=== PATIENT | male | born 1970 | race Caucasian/White ===

== ENCOUNTER 2017-04-02 23:07 | Emergency (ER) | payer OTHER ==
[~2017-04-02] VITALS: Ht 167.6 cm; Wt 80.6 kg
[2017-04-02 23:11] VITALS: BP 146/100; PULSE 91; RESP 20; TEMP 98.2; O2SAT 93
[2017-04-02] MEDS ORDERED: RESP: ALBUTEROL 2.5 MG/IPRATROPIUM 0.5 MG NEB (SCH) NEB ONE (23:30)
[2017-04-02] MEDS ORDERED: methylPREDNISolone SOD SUCC 125 MG/2 ML VIAL IV PUSH ONE (23:30)
--- NOTE | 2017-04-02 23:36 | PD ---
HPI Chief Complaint: Respiratory Symptoms Time Seen by Provider: 23:16 Travel History International Travel<30 days: No Contact w/Intl Traveler<30days: No Traveled to known affect area: No History of Present Illness HPI This 46-year-old male is complaining of cough and shortness of breath. He has a history of asthma. He was admitted quite often when he was a child. Recently it seems like his asthma has been getting worse. He had a chest x-ray couple weeks ago which was negative he is on albuterol at home. He has been on steroids in the past but is not on them right now. He has not had any fever or chills. He has been coughing and has been short of breath tonight [facility] Past Medical History Respiratory: Yes (Ashtma) Social History Alcohol Use: Yes (SOCIAL) Tobacco Use: No Substance Use: No Allergies-Medications (Allergen,Severity, Reaction): Coded Allergies: No Known Allergies (Verified , 04/02/17) Reported Meds & Prescriptions Reported Meds & Active Scripts Active Prednisone 20 Mg Tab 60 Mg PO DAILY 5 Days Review of Systems General / Constitutional: No: Fever, Chills Eyes: No: Diploplia, Blurred Vision HENT: No: Headaches, Vertigo Cardiovascular: No: Chest Pain or Discomfort, Palpitations Respiratory: Positive: Cough, Shortness of Breath Gastrointestinal: No: Nausea, Vomiting Genitourinary: No: Urgency, Frequency Musculoskeletal: No: Myalgias, Arthralgias Skin: No Rash, No Itching Neurologic: No: Weakness Hematologic/Lymphatic: No: Easy Bruising Physical Exam Narrative GENERAL: Well-developed male SKIN: Focused skin assessment warm/dry. HEAD: Atraumatic. Normocephalic. EYES: Pupils equal and round. No scleral icterus. No injection or drainage. ENT: No nasal bleeding or discharge. Mucous membranes pink and moist. NECK: Trachea midline. No JVD. CARDIOVASCULAR: Regular rate and rhythm. No murmur appreciated. RESPIRATORY: Bilateral inspiratory and expiratory wheezes GASTROINTESTINAL: Abdomen soft, non-tender, nondistended. Hepatic and splenic margins not palpable. MUSCULOSKELETAL: No obvious deformities. No clubbing. No cyanosis. No edema. NEUROLOGICAL: Awake and alert. No obvious cranial nerve deficits. Motor grossly within normal limits. Normal speech. PSYCHIATRIC: Appropriate mood and affect; insight and judgment normal. Data Data Last Documented VS Vital Signs Date Time Temp Pulse Resp B/P Pulse Ox O2 Delivery O2 Flow Rate FiO2 04/02/17 23:37 84 20 94 Room Air 04/02/17 23:11 98.2 146/100 Orders Albuterol-Ipratropium Neb (Duoneb Neb) (04/02/17 23:30) Methylprednisolone So Succ Inj (Solumedr (04/02/17 23:30) MDM Medical Decision Making Medical Screen Exam Complete: Yes Emergency Medical Condition: Yes Medical Record Reviewed: Yes Differential Diagnosis Differential includes asthma, bronchospasm Narrative Course This patient has been given repeated nebulizer treatments with some improvement. He'll be released with prescription for prednisone and albuterol Diagnosis Primary Impression: Asthma Qualified Code: J45.901 - Asthma with acute exacerbation, unspecified asthma severity Scripts Albuterol Neb 2.5 Mg/3 Ml Neb2.5 Mg NEB Q4HR NEB PRN (SHORTNESS OF BREATH) #60 NEBULE Ref 0 Prov:Bartolo Cleveland MD 04/03/17 Prednisone 20 Mg Tab60 Mg PO DAILY 5 Days Ref 0 Prov:Bartolo Cleveland MD 04/02/17 Disposition: 01 DISCHARGE HOME Condition: Stable Bartolo Cleveland MD April 02, 2017 23:36
[2017-04-02] MEDS ORDERED: PRED20 PO (23:40)
[2017-04-03] MEDS ORDERED: ALBU0.08 NEB (00:08)
[2017-04-03 00:45] VITALS: BP 144/86; PULSE 91; RESP 18; O2SAT 95
== END 2017-04-03 00:46 | disposition home or self-care (01) ==
LOC: PHED 23:07
DX: J45.901 Unspecified asthma with (acute) exacerbation (principal)
CPT/HCPCS: 94664; 96374; 99283; J2930